=== PATIENT | female | born 1970 | race Caucasian/White ===

== ENCOUNTER 2023-11-24 11:33 | Day surgery (SDC) | payer BC ==
[2023-11-24 12:20] LABS: Absolute Lymphocytes (CBC) 1.6 K/uL (0.7-4.9); Absolute Monocytes 0.9 K/uL (0.1-1.3); Absolute Neutrophil 7.4 K/uL (1.8-8.0); Basophils % 0.2 % (0-1.3); Eosinophils % 0.1 % (0-4.4); Hematocrit 37.8 % (36.0-45.0); Hemoglobin 12.8 g/dL (12.0-15.0); Lymphocytes % 16.2 % (15.3-44.8); MCHC 33.8 g/dL (32.0-36.0); MCV 94.7 fL (80-100); Monocytes % 8.8 % (3.3-12.3); Neutrophils % 74.7 % (41.7-73.7); Platelets 413 thou/uL (152-406); RBC Red Blood Cell Count 3.99 M/uL (3.86-4.86); Red Cell Distribution Width 12.6 % (12.1-15.2)
[2023-11-24 12:34] LABS: ALT/SGPT 21 U/L (13-56); Albumin 3.8 g/dL (3.4-5.0); Albumin/Globulin Ratio 1.1 (1.1-1.8); Alkaline Phosphatase 46 U/L (45-117); Anion Gap 8.6 mEq/L (5.0-15.0); BUN Blood Urea Nitrogen 13 mg/dL (7-18); Bicarbonate 29 mEq/L (21-32); Bilirubin Total 0.4 mg/dL (0.2-1.0); Globulin 3.5 g/dL (2.3-3.5); Glomerular Filtration Rate 109 ml/min (=/>90); Glucose Level 105 mg/dL (74-106); Lipase 62 U/L (13-75); Potassium 3.6 mEq/L (3.5-5.1); Protein, Total 7.3 g/dL (6.4-8.2); Sodium Level 140 mEq/L (136-145)
[2023-11-24] MEDS ORDERED: Ringers Lactate 1,000 ML IV ONE (12:36)
[2023-11-24] MEDS ORDERED: CEFOXITIN SODIUM 1 GM/VIAL ONE (12:36)
[2023-11-24 12:38] LABS: AST/SGOT < 10 U/L (15-37); Bilirubin Direct < 0.2 mg/dL (0-0.2); Bilirubin Indirect, Calculated 0.2 mg/dL (0.2-0.8)
--- NOTE | 2023-11-24 12:55 | RAD REPORT ---
EXAM DESCRIPTION: Scott Gabriel (2 Views)11/24/2023 12:36 pm CLINICAL HISTORY: Preop for cholecystectomy COMPARISON: None FINDINGS: The lungs appear clear of acute infiltrate. The heart is normal size IMPRESSION: No acute abnormalities displayed
[2023-11-24] MEDS ORDERED: LIDOCAINE 2% MPF 5 ML VIAL ONE (14:58)
[2023-11-24] MEDS ORDERED: ONDANSETRON 4 MG/2 ML VIAL ONE (14:58)
[2023-11-24] MEDS ORDERED: propofoL 200 MG/20 ML VIAL IV ONE ×2 (14:59→15:52)
[2023-11-24] MEDS ORDERED: MIDAZOLAM HCL 2 MG/2 ML INJ ONE (14:59)
[2023-11-24] MEDS ORDERED: FENTANYL CITR 100 MCG/2 ML ONE ×2 (14:59→15:52)
[2023-11-24] MEDS ORDERED: ROCURONIUM 50 MG/5 ML VIAL IV ONE ×2 (14:59→15:52)
[2023-11-24] MEDS ORDERED: SUCCINYLCHOLINE 20 MG/ML (10 ML) IV ONE (15:57)
[2023-11-24] MEDS ORDERED: GLYCOPYRROLATE 0.2 MG/ML SYR ONE ×3 (16:33)
[2023-11-24] MEDS ORDERED: NEOSTIGMINE 1 MG/ML -10 ML VIAL ONE (16:33)
--- NOTE | 2023-11-24 16:46 | P.BOP ---
Preoperative diagnosis: symptomatic cholelithiasis, RUQ abd pain Postoperative diagnosis: same Primary procedure: Laparoscopic cholecystectomy Estimated blood loss: <10cc Specimen: gb Findings: as above Anesthesia: General Complications: None Transferred to: Recovery Room Condition: Good
--- NOTE | 2023-11-24 16:58 | EKG ---
Test Date: 2023-11-24 Test Time: 12:12:12 Lead Performance Support Analyst: DAVID MEASUREMENT RESULTS: Intervals: Rate: 74 FL: 138 QRSD: 88 QT: 380 QTc: 421 [place]: P: 21 FL: 138 QRS: -57 T: 54 INTERPRETIVE STATEMENTS: Normal sinus rhythm Left axis deviation Abnormal ECG Compared to ECG 05/10/2014 14:56:41 Left-axis deviation now present Left anterior fascicular block no longer present Electronically Signed On 11-24-23 16:58:03 CDT by Tushar Yates
[2023-11-24 17:01] VITALS: O2SAT 100
[2023-11-24] MEDS: KETOROLAC 30 MG/ML INJ ONE (17:07)
[2023-11-24] MEDS: ONDANSETRON 4 MG/2 ML VIAL ONE (17:27)
[2023-11-24] MEDS: FENTANYL CITR 100 MCG/2 ML ONE (17:30)
[2023-11-24 18:12] VITALS: BP 130/75; TEMP 97.5
[2023-11-24] MEDS: HYDROCODONE/APAP 7.5/325 MG TAB ONE (18:18)
--- NOTE | 2023-11-25 04:45 | OP ---
Date of Procedure: 11/24/2023 Surgeon: Vinh Sage MD Preoperative Diagnosis: Acute cholecystitis, symptomatic cholelithiasis. Postoperative Diagnosis: Acute cholecystitis, symptomatic cholelithiasis. Procedure: Laparoscopic cholecystectomy. Anesthesia: General plus local. Complications: None. Findings: As above. Indications: This is a case of a 52-year-old patient comes to us with above diagnosis. Fully explai carlita the benefits, alternatives, and risks of laparoscopy, possible open cholecystectomy, which includ e, but not limited to infection, bleeding, damage to adjacent structures, anesthesia complication, ch oledocholithiasis, choledocholithiasis, bile leak, pancreatitis, UT, and . She also understands this might not relieve any symptoms. She might need more than one surgical intervention. She under stood, signed a consent. Description Of Procedure: The patient was brought to the operating room, placed in supine position. Anesthesia was induced without complication. Abdominal area was prepped and draped in the usual ciara rile fashion. Marcaine 0.5% plain was injected for local anesthetic, followed by sharp incision of t he skin after a time-out was called. Incision was carried down to fascia, which was opened under dir ect vision. Peritoneum was encountered, opened under direct vision. Vicryl #1 placed inside the fas giselle. Tabby trocar was carefully introduced. Pneumoperitoneum was obtained. I placed 3 more trocar s, 5 mm each one of them under direct visualization in the epigastric, right upper quadrant area. Th ere were multiple omental adhesions to the gallbladder. They were released with the help of LigaSure until we released the gallbladder completely. Once we have the gallbladder released, we put a grasp er in the fundus of the gallbladder another grasper in the infundibulum, retracting the gallbladder i n the inferolateral fashion exposing the triangle of Calot, obtaining critical view. The cystic duct and cystic artery were clearly isolated, freed circumferentially, and a connection between those and the gallbladder were clearly identified. I proceeded to ligate those by using at least 3 clips prox imal, 1 clip distal, ligation in middle, same was done with the cystic artery. No bile leak. No ble eding. The gallbladder was removed from liver using Bovie cauterizer and removed from abdominal cavi ty using EndoCatch through the umbilical incision. The area was inspected once again, no bile leak. No bleeding. At that moment, I proceeded to remove the trocars under direct visualization. Deflate d pneumoperitoneum. Closed the fascia with 1 Vicryl, irrigated subcutaneous tissue, closed with 3-0 chromic and the skin with 3-0 chromic in a subcuticular fashion and Steri-Strips on top. Sponge coun t, instrument counts correct. Patient tolerated the procedure well. Patient was sent to recovery in stable condition. Disposition: Home. Activity: As tolerated. No heavy lifting. Follow up in my office in 1 week. Call for appointment [phone]. Keep area dry for 48 hours, then may shower. Keep Steri-Strips intact. HUY/SINTIA Voice ID: [id number] Report ID: [id number]
== END 2023-11-24 18:20 | disposition home or self-care (01) ==
LOC: OR 11:33
PROVIDERS: ATTEND Surgery
PROC: 0FT44ZZ Resection of Gallbladder, Percutaneous Endoscopic Approach (ICD-10-PCS; principal; 2023-11-24 13:30)
DX: K80.10 Calculus of gallbladder with chronic cholecystitis without obstruction (principal); I10 Essential (primary) hypertension
CPT/HCPCS: 93005; 85025; 80048; 36415; 80076; 83690; 71046; 47600; J2704; J2710; J2001; J2250; J3010 ×2; J0694; J2405 ×2; J7120; 88304